=== PATIENT | female | born 1965 | race Caucasian/White ===

== ENCOUNTER → 2017-12-30 | Day surgery (SDC) | payer OTHER ==
[~2017-12-30] MED LIST: DEXT30TA16 PO; HYDR100T24 PO; HYDR12.53 PO; HYDROmorphone 2 MG/ML VIAL IV PRN; IRBE300T3 PO; IV RINGERS,LACTATED 1000ML 1,000 ML IV SCH; LIDOCAINE 1% PF 2 ML VIAL. ID PRN; MORPHINE SULFATE 2 MG/ML VIAL. IV PRN; OMEP40CA5 PO; ONDANSETRON PF 4 MG/2 ML VIAL. IV PRN; PROCHLORPERAZINE 10 MG/2 ML VIAL. IV PRN; PROPOFOL 40 ML IV ONE; SERT50TA PO; fentaNYL PF VIAL 100 MCG/2 ML VIAL IV PRN
[2017-12-30 10:01] VITALS: BP 133/97
--- NOTE | 2017-12-30 10:05 | PREOP HP ---
DATE OF SERVICE: DATE OF PROCEDURE: 12/30/2017 REQUESTING PHYSICIAN: Dr. Howell. PRIMARY CARE PHYSICIAN: Dr. Howell. REASON FOR PROCEDURE: Colorectal cancer screening. HISTORY OF PRESENT ILLNESS: This is a 52-year-old female who presents for colorectal cancer screening. She has not had a prior colonoscopy and has 2 bowel movements a day. She also has reflux symptoms for which she which she takes PPI. She occasionally has some hematochezia that she attributes to hemorrhoids. ALLERGIES: SULFA. PAST MEDICAL HISTORY: 1. Reflux. 2. High blood pressure. 3. Skin cancer. FAMILY MEDICAL HISTORY: Colon polyps in her mother and father, but no colorectal cancer. SOCIAL HISTORY: She denies tobacco use. She drinks alcohol and denies IV drug abuse. MEDICATIONS: MAR was reviewed. REVIEW OF SYSTEMS: A 13-point review of systems was done. It is positive for night sweats, snoring, dizziness, heat intolerance, hot flashes and easy bruising. Otherwise, 13-point review of systems is positive as per HPI and otherwise negative. PHYSICAL EXAMINATION: VITAL SIGNS: She is afebrile and vital signs are stable. GENERAL: She is well-developed, well-nourished, female, in no apparent distress. HEENT: Oropharynx is clear. CARDIOVASCULAR: S1, S2. LUNGS: Clear. ABDOMEN: Normoactive bowel sounds, soft, nontender, nondistended. EXTREMITIES: No edema. NEUROLOGIC: She is alert and oriented x 3. ASSESSMENT AND PLAN: 1. Reflux. She is on a PPI and has declined an upper endoscopy at this time. 2. Colorectal cancer screening. The risks and benefits of the procedure including bleeding, perforation, non-diagnosis and sedation were explained. She has agreed to proceed. Thank you for allowing me to participate in the care of this patient. XUAN HARRISON MD DR: GALEN/eloisa JOB#: [id number] / [id number]
--- NOTE | 2017-12-31 14:09 | PATHOLOGY ---
[facility] Accession Number: [id number] . 01 Material submitted: . RECTUM POLYP . 01 Clinical history: . Screening . 02 Diagnosis: Colorectal biopsy, rectal polyp. - Hyperplastic polyp. . (JPM/at;12/31/2017) QTA/12/31/2017 . 02 Comment: There are no adenomatous changes or evidence of malignancy. . 02 Electronically signed: . Isac Suresh MD, Pathologist NPI- [id number] . 01 Gross description: . Received in formalin labeled "Buckley, Ena, rectum polyp," are 2 segments of akhtar soft tissue measuring 0.6 x 0.2 x 0.2 cm in aggregate dimensions and measuring 0.3 cm each in maximum dimension. The specimen is submitted entirely in cassette A1. (TSD; 12/30/2017) TOB/TOB . 02 Pathologist provided ICD-10: K62.1 . 02 CPT . 499844 Specimen Comment: A courtesy copy of this report has been sent to Specimen Comment: [phone], . Specimen Comment: Report sent to / DR CARR Specimen Comment: A duplicate report has been generated due to demographic updates. Performed at: 01 [facility] [address], [place], [place] [id number] MD Efrain Higgins MD Phone: [phone] Performed at: 02 [facility] [address], [place] [id number] MD Isac Suresh MD Phone: [phone]
== END | disposition home or self-care (01) ==
LOC: ENDOS 07:49
PROVIDERS: ATTEND Internal Medicine Gastroenterology
DX: Z12.11 Encounter for screening for malignant neoplasm of colon (principal); K62.1 Rectal polyp; K57.30 Diverticulosis of large intestine without perforation or abscess without bleeding; K64.0 First degree hemorrhoids; I10 Essential (primary) hypertension; Z85.828 Personal history of other malignant neoplasm of skin; K21.9 Gastro-esophageal reflux disease without esophagitis; Z88.2 Allergy status to sulfonamides; Z83.71 Family history of colonic polyps; Z72.89 Other problems related to lifestyle; Z79.899 Other long term (current) drug therapy
CPT/HCPCS: 45380; 88305; J2704